=== PATIENT | male | born 1970 | race American Indian/Alaskan Native ===

== ENCOUNTER 2020-07-27 11:41 | Emergency (ER) | payer SELFPAY ==
[2020-07-27] MEDS ORDERED: levETIRAcetam 500 MG in DEXTROSE 5% IN WATER 100 ML IV ONE (18:23)
[2020-07-27] MEDS ORDERED: BUTALB/ACETAMINOPHEN/CAFFEINE TAB PO ONE (18:24)
--- NOTE | 2020-07-27 18:29 | Emergency Department Report ---
HPI - General Chief Complaint: Extremity Problem,Nontraumatic Time Seen by Provider: 07/27/20 16:13 - HPI HPI: Room 2 The patient is a 49-year-old male present with a chief complaint of seizure. states this morning patient had 2 episodes of his focal seizures in the left lower extremity. The states that the left leg begins to shake the pat ient is more confused than normal. Patient has been placed on Keppra in the past for this and has an appointment to see a new neurologist next month. The states he was seen by a neurologist in the emergency department at [facility] and diagnosed with seizures for the above. She states he was originally taking Keppra 500 mg twice a day and that was increased to 1000 mg twice a day. The patient has been compliant with his Keppra. Patient now complains of a headache ED Past Medical Hx - Past Medical History Previous Medical History?: Yes Hx CVA: Yes Hx Asthma: Yes - Surgical History Past Surgical History?: No - Family History Family history: no significant - Social History Smoking Status: Never Smoker Substance Use Type: None (Denies current drug use) - Medications Home Medications: Home Medications Medication Instructions Recorded Confirmed Last Taken Type Aspirin 325 mg PO ONCE 07/27/20 07/27/20 Unknown History AtorvaSTATin [Lipitor] 40 mg PO QHS 07/27/20 07/27/20 Unknown History Ezetimibe [Zetia] 10 mg PO QDAY 07/27/20 07/27/20 Unknown History levETIRAcetam [Keppra TAB] 1,500 mg PO BID #90 tablet 07/27/20 Unknown Rx levETIRAcetam [Keppra] 1,000 mg PO ONCE 07/27/20 07/27/20 Unknown History ED Review of Systems ROS: Stated complaint: MUSCLE SPASM Other details as noted in HPI Constitutional: no symptoms reported Respiratory: no symptoms reported Endocrine: no symptoms reported Neurological: headache, other (Seizure) Physical Exam - Physical Exam Vital Signs: Vital Signs 07/27/20 07/27/20 12:06 18:20 Temperature 98.5 F Pulse Rate 87 84 Respiratory 20 17 Rate Blood Pressure 133/93 Blood Pressure 126/82 [Left] O2 Sat by Pulse 96 97 Oximetry Physical Exam: GENERAL: The patient is well-developed well-nourished male lying on stretcher not appearing to be in acute distress. [] HEENT: Normocephalic. Atraumatic. Patient has moist mucous membranes. NECK: Supple. Trachea midline CHEST/LUNGS: Clear to auscultation. There is no respiratory distress noted. HEART/CARDIOVASCULAR: Regular. There is no tachycardia. There is no gallop rub or murmur. ABDOMEN: Abdomen is soft, nontender. Patient has normal bowel sounds. There is no abdominal distention. SKIN: There is no rash. There is no edema. There is no diaphoresis. NEURO: The patient is awake and alert. The patient is cooperative. The patient has left-sided weakness from previous CVA. The patient has normal speech. Patient able to stand on both feet and maintain balance without difficulty MUSCULOSKELETAL: There is no evidence of acute injury. ED Course Vital Signs 07/27/20 07/27/20 12:06 18:20 Temperature 98.5 F Pulse Rate 87 84 Respiratory 20 17 Rate Blood Pressure 133/93 Blood Pressure 126/82 [Left] O2 Sat by Pulse 96 97 Oximetry ED Medical Decision Making - Lab Data Result diagrams: 07/27/20 19:04 07/27/20 20:14 Laboratory Tests 07/27/20 07/27/20 07/27/20 19:04 19:04 20:14 WBC 12.5 H RBC 4.95 Hgb 15.9 H Hct 48.6 H MCV 98 H MCH 32 MCHC 33 RDW 14.6 Plt Count 349 Lymph % (Auto) 19.8 [place] % (Auto) 8.2 H Eos % (Auto) 5.2 H Baso % (Auto) 1.1 Lymph # (Auto) 2.5 [place] # (Auto) 1.0 H Eos # (Auto) 0.6 H Baso # (Auto) 0.1 Seg Neutrophils % 65.7 Seg Neutrophils # 8.2 H Sodium 140 Potassium 5.4 H 4.6 Chloride 100.7 Carbon Dioxide 23 Anion Gap 22 BUN 12 Creatinine 0.8 Estimated GFR > 60 BUN/Creatinine Ratio 15 Glucose 85 Calcium 9.9 Magnesium 2.20 - Radiology Data Radiology results: report reviewed (CT head), image reviewed (CT head) [facility] [address] [place] [address] Cat Scan Report Signed Patient: LUIS MANUEL LARA MR#: [id number] [birth year] : 1970 Acct:[id number] Age/Sex: 49 / M ADM Date: 07/27/20 Loc: ED Attending Dr: Ordering Physician: NADINE FU MD Date of Service: 07/27/20 Procedure(s): CT head/brain wo con Accession Number(s): [id number] cc: NADINE FU MD CT HEAD WITHOUT CONTRAST INDICATION / CLINICAL INFORMATION: Headache after focal left lower extremity seizure. TECHNIQUE: All CT scans at this location are performed using CT dose reduction for ALARA by means of automated exposure control. COMPARISON: None available. FINDINGS: HEMORRHAGE: No evidence of intracranial hemorrhage or extra-axial fluid collection. EXTRA-AXIAL SPACES: Focal dilatation of cortical sulci is observed along the lateral convexity of the right temporal lobe, right parietal lobe and right frontal lobe secondary to remote right MCA infarction. VENTRICULAR SYSTEM: Ex vacuo dilatation of the right lateral ventricle is noted secondary to remote right MCA infarction. CEREBRAL PARENCHYMA: Large areas of encephalomalacia are observed involving right parietal lobe, right temporal lobe and to a lesser degree the right frontal lobe. In addition low-attenuation is observed in the right gangliocapsular region. These findings are manifestations of remote right MCA infarction. MIDLINE SHIFT OR HERNIATION: There is no mass effect. 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 Brainstem has an otherwise unremarkable appearance. No cerebellar abnormalities are identified. MIDLINE STRUCTURES:No abnormalities of the pituita ry gland or pineal region are identified. INTRACRANIAL VESSELS:No abnormalities are identified on this noncontrast head CT. ORBITS: Patient appears to be status post bilateral cataract surgery. The orbits have an otherwise unremarkable appearance. SOFT TISSUES of HEAD: No significant abnormality. CALVARIUM: Evaluation of bone windows reveals no abnormalities. PARANASAL SINUSES / MASTOID AIR CELLS: Paranasal sinuses are free from inflammatory mucosal disease. Mastoid air cells are normally pneumatized. IMPRESSION: 1. Encephalomalacia involving right parietal, right temporal and, to a lesser degree, right frontal lobe secondary to remote right MCA infarction. Ex vacuo dilatation of adjacent cortical sulci and of the right lateral ventricle is observed. 2. No acute intracranial abnormalities are identified. Signer Name: Shakeel Chopra MD Signed: 07/27/2020 7:04 PM Workstation Name: [id number] Transcribed By: Dictated By: Shakeel Chopra MD Electronically Authenticated By: Shakeel Chopra MD Signed Date/Time: 07/27/201903 DD/ 99 TD/TT: - Differential Diagnosis Seizure Critical care attestation.: If time is entered above; I have spent that time in minutes in the direct care of this critically ill patient, excluding procedure time. ED Disposition Clinical Impression: Seizure Disposition: DC-01 TO HOME OR SELFCARE Is pt being admited?: No Does the pt Need Aspirin: No Condition: Stable Instructions: Recurrent Seizures Adult (ED) Additional Instructions: Return to the emergency department should you develop worsening symptoms, inability to tolerate food or liquids, high fever or any other concerns Prescriptions: levETIRAcetam [Keppra TAB] 1,500 mg PO BID #90 tablet Referrals: KAITLIN FAUST MD [Staff Physician] - 3-5 Days (Dr. Faust is a neurologist. Please follow-up with him for further evaluation) Time of Disposition: 21:14
[2020-07-27] MEDS: levETIRAcetam 1000 MG/NS 0.75% 1,000 MG/100 ML BAG IV ONE ×2 (18:51→19:50)
--- NOTE | 2020-07-27 19:08 | Cat Scan Report ---
CT HEAD WITHOUT CONTRAST INDICATION / CLINICAL INFORMATION: Headache after focal left lower extremity seizure. TECHNIQUE: All CT scans at this location are performed using CT dose reduction for ALARA by means of automated e xposure control. COMPARISON: None available. FINDINGS: HEMORRHAGE: No evidence of intracranial hemorrhage or extra-axial fluid collection. EXTRA-AXIAL SPACES: Focal dilatation of cortical sulci is observed along the lateral convexity of the right temporal lobe, right parietal lobe and right frontal lobe secondary to remote right MCA infarc tion. VENTRICULAR SYSTEM: Ex vacuo dilatation of the right lateral ventricle is noted secondary to remote r ight MCA infarction. CEREBRAL PARENCHYMA: Large areas of encephalomalacia are observed involving right parietal lobe, righ t temporal lobe and to a lesser degree the right frontal lobe. In addition low-attenuation is observe d in the right gangliocapsular region. These findings are manifestations of remote right MCA infarcti on. MIDLINE SHIFT OR HERNIATION: There is no mass effect. CEREBELLUM / BRAINSTEM: Evaluation of the brainstem is remarkable for atrophy of the right cerebral p eduncle secondary to Wallerian degeneration due to patient's remote right MCA infarction. Brainstem h as an otherwise unremarkable appearance. No cerebellar abnormalities are identified. MIDLINE STRUCTURES:No abnormalities of the pituitary gland or pineal region are identified. INTRACRANIAL VESSELS:No abnormalities are identified on this noncontrast head CT. ORBITS: Patient appears to be status post bilateral cataract surgery. The orbits have an otherwise un remarkable appearance. SOFT TISSUES of HEAD: No significant abnormality. CALVARIUM: Evaluation of bone windows reveals no abnormalities. PARANASAL SINUSES / MASTOID AIR CELLS: Paranasal sinuses are free from inflammatory mucosal disease. Mastoid air cells are normally pneumatized. IMPRESSION: 1. Encephalomalacia involving right parietal, right temporal and, to a lesser degree, right frontal l obe secondary to remote right MCA infarction. Ex vacuo dilatation of adjacent cortical sulci and of t he right lateral ventricle is observed. 2. No acute intracranial abnormalities are identified. Signer Name: Shakeel Chopra MD Signed: 07/27/2020 7:04 PM Workstation Name: [id number]
[2020-07-27 19:20] LABS: Basophils # (Auto) 0.1 K/mm3 (0.0-0.1); Basophils % (Auto) 1.1 % (0.0-1.8); Eosinophils # (Auto) 0.6 K/mm3 (0.0-0.4); Eosinophils % (Auto) 5.2 % (0.0-4.3); Hematocrit 48.6 % (35.5-45.6); Hemoglobin 15.9 gm/dl (11.8-15.2); Lymphocytes # (Auto) 2.5 K/mm3 (1.2-5.4); Lymphocytes % (Auto) 19.8 % (13.4-35.0); Mean Corpuscular HGB Conc 33 % (32-34); Mean Corpuscular Volume 98 fl (84-94); Monocytes % (Auto) 8.2 % (0.0-7.3); Red Blood Count 4.95 M/mm3 (3.65-5.03); Red Cell Distribution Width 14.6 % (13.2-15.2)
[2020-07-27] MEDS ORDERED: IPRATROPIUM 0.02% NEBU 2.5 ML IH ONE (19:23)
[2020-07-27] MEDS ORDERED: ALBUTEROL 2.5 MG/3 ML NEBU IH ONE (19:23)
[2020-07-27 19:24] LABS: Platelet Count 349 K/mm3 (140-440)
[2020-07-27 19:39] LABS: BUN/Creatinine Ratio 15; Blood Urea Nitrogen 12 mg/dL (9-20); Calcium 9.9 mg/dL (8.4-10.2); Hemolysis Index 25
[2020-07-27 23:25] VITALS: BP 114/75
== END 2020-07-27 21:30 | disposition home or self-care (01) ==
LOC: ED 11:41
DX: G40.909 Epilepsy, unspecified, not intractable, without status epilepticus (principal); J45.909 Unspecified asthma, uncomplicated; Z86.73 Personal history of transient ischemic attack (TIA), and cerebral infarction without residual deficits; Z79.899 Other long term (current) drug therapy
CPT/HCPCS: 36415; 70450; 80048; 83735; 84132; 85025; 96365; 96368; 99284; J1953